=== PATIENT | female | born 1950 | race Hispanic/Latino ===

== ENCOUNTER → 2019-04-09 | Outpatient (CLI) | payer MEDICARE ==
[~2019-04-09] MED LIST: REGADENOSON 0.4 MG/5 ML SYR IV ONE
--- NOTE | 2019-04-09 20:20 | Myoview Stress Test ---
DATE OF STUDY: 04/09/2019 07:59:00 Stress Test - Treadmill ONLY PROCEDURE TITLE: Rest/stress single isotope SPECT imaging with pharmacologic stress and gated SPECT imaging. INDICATION: Chest pain. PROCEDURE IN DETAIL: Pharmacologic stress testing was performed with regadenoson per protocol. The heart rate was 75 beats per minute at rest increased to 97 beats per minute during the regadenoson infusion. The rest blood pressure was 108/65 mmHg and decreased to 94/66 mmHg, which is a normal response. The resting electrocardiogram demonstrated electronic ventricular pacemaker. There were no ST-segment changes suggestive of myocardial ischemia. Myocardial perfusion imaging was performed at rest following the injection of 11 mCi of tetrofosmin. At peak pharmacologic effect, the patient was injected with 38.8 mmHg. Gated post-stress tomographic imaging was performed. FINDINGS: The overall quality of study is poor. Left ventricular cavity is noted to be normal size on the rest and stress studies. SPECT images demonstrate a medium-sized mild perfusion defect at rest that is worse with stress. SPECT images demonstrate a medium-sized mild perfusion defect in the inferior wall that is worse with stress. In addition, there is a large moderately severe perfusion defect in the anterior wall at rest that improves with stress. Gated SPECT imaging revealed moderate global hypokinesis. Left ventricular ejection fraction is calculated to be 35%. IMPRESSION: Myocardial perfusion imaging is abnormal. There is a moderate area of ischemia in the inferior wall. In addition, there is a large nontransmural scar in the anterior wall, cannot rule out attenuation artifact. The overall left ventricular systolic function was abnormal. Leticia Santamaria MD ABS/MODL /[id number]
== END ==
LOC: NM 07:46
PROVIDERS: ATTEND Internal Medicine Cardiovascular Disease
DX: R07.9 Chest pain, unspecified (principal)
CPT/HCPCS: 78452; 93017; A9502; J2785